=== PATIENT | female | born 1990 ===

== ENCOUNTER 2019-02-21 06:29 | Inpatient (IN) | payer OTHER ==
[~2019-02-21] VITALS: Ht 157.5 cm; Wt 70.8 kg
[2019-02-21] MEDS ORDERED: PRENATAL TABLE1 EAC1 PO (07:32)
== END 2019-02-23 10:56 | disposition home or self-care (01) | DRG 807 ==
LOC: LDR 06:29 → SURG-SUITE 06:29 → OB/GYN 20:41 → SURG-SUITE 21:28
PROVIDERS: ADMIT Obstetrics & Gynecology
PROC: 10E0XZZ Delivery of Products of Conception, External Approach (ICD-10-PCS; principal; 2019-02-21)
PROC: 10907ZC Drainage of Amniotic Fluid, Therapeutic from Products of Conception, Via Natural or Artificial Opening (ICD-10-PCS; 2019-02-21)
PROC: 0W8NXZZ Division of Female Perineum, External Approach (ICD-10-PCS; 2019-02-21)
PROC: 3E033VJ Introduction of Other Hormone into Peripheral Vein, Percutaneous Approach (ICD-10-PCS; 2019-02-21)
PROC: 4A1HXCZ Monitoring of Products of Conception, Cardiac Rate, External Approach (ICD-10-PCS; 2019-02-21)
DX: O80 Encounter for full-term uncomplicated delivery (principal); Z37.0 Single live birth; Z3A.38 38 weeks gestation of pregnancy